=== PATIENT | male | born 1995 | race Caucasian/White ===

== ENCOUNTER 2020-08-13 09:33 | Emergency (ER) | payer SELFPAY ==
[~2020-08-13] VITALS: Ht 167.6 cm; Wt 81.6 kg
[2020-08-13 09:43] VITALS: BP 121/75
--- NOTE | 2020-08-13 09:48 | NUR ---
19/M BIB SELF C/O SUBJECTIVE FEVER, COUGH, SORE THROAT,RUNNY NOSE, HEADACHE X LAST NIGHT.MED HX: DENIES. DENIES N/V/D; SKIN IS PINK/WARM/DRY; AAOX4 WITH EVEN AND STEADY GAIT; LUNGS CLEAR BL; HR TACHYCARDIA. PT DENIES ANY CP OR SOB AT THIS TIME; PATIENT STATES PAIN OF 6/10 AT THIS TIME.
--- NOTE | 2020-08-13 09:56 | NUR ---
Patient being evaluated by DR CLARK at [facility] OF1.
--- NOTE | 2020-08-13 10:10 | NUR ---
COVID SWAB DONE. SENT TO LAB.
--- NOTE | 2020-08-13 10:12 | NUR ---
pt oral temp 99.8 at this time. hr 119. Dr. Horn made aware
--- NOTE | 2020-08-13 10:28 | NUR ---
Patient discharged with v/s stable. Written and verbal after care instructions given and explained. Patient alert, oriented and verbalized understanding of instructions. Ambulatory with steady gait. All questions addressed prior to discharge. ID band removed. Patient advised to follow up with PMD. Rx of ACETAMINOPHEN & NAPROXYN given. Patient educated on indication of medication including possible reaction and side effects. Opportunity to ask questions provided and answered.
[2020-08-13 10:29] VITALS: BP 117/67
== END 2020-08-13 10:28 | disposition home or self-care (01) ==
LOC: MED 09:33 → EDBD 09:33 → MED 10:28
DX: B34.9 Viral infection, unspecified (principal); Z20.828 Contact with and (suspected) exposure to other viral communicable diseases
CPT/HCPCS: 99283; U0003

== ENCOUNTER 2023-06-30 03:30 | Emergency (ER) | payer MEDICAID, OTHER ==
[~2023-06-30] VITALS: Ht 167.6 cm; Wt 72.6 kg
[2023-06-30 03:41] VITALS: BP 156/65; PULSE 78; RESP 16; TEMP 97.7; O2SAT 98
[2023-06-30 03:52] VITALS: O2SAT 98
[2023-06-30] MEDS ORDERED: DIPH25TA53 PO (04:20)
[2023-06-30] MEDS ORDERED: [UNRECOGNIZED DRUG - CODE] TP (04:20)
== END 2023-06-30 04:40 | disposition home or self-care (01) ==
LOC: MED 03:30
DX: U07.1 COVID-19 (principal); R21 Rash and other nonspecific skin eruption; Z79.899 Other long term (current) drug therapy
CPT/HCPCS: 99282